=== PATIENT | male | born 1960 | race African-American/Black ===

== ENCOUNTER 2017-07-28 13:34 | Observation (INO) ==
[2017-07-28 14:52] LABS: Osmolality,Calculated 272.1 MOS/KG (273-304); Potassium 3.6 MMOL/L (3.5-5.1)
[2017-07-28] MEDS ORDERED: DEXTROSE 5% NACL 0.45% 1,000 ML IV SCH (16:00)
[2017-07-28] MEDS ORDERED: THIAMINE 200 MG/2 ML VIAL IM STA (16:08)
[2017-07-28] MEDS ORDERED: THIAMINE 200 MG/2 ML VIAL ONE (16:44)
[2017-07-28] MEDS ORDERED: ONDANSETRON 4 MG/2 ML VIAL IV PRN (17:42)
[2017-07-28] MEDS ORDERED: DEXTROSE 50% 25 GM/50 ML VIAL IV PRN (17:42)
[2017-07-28] MEDS ORDERED: DEXTROSE 10% 1,000 ML IV SCH (17:42)
[2017-07-28] MEDS ORDERED: GLUCAGON 1 MG VIAL IM PRN (17:42)
[2017-07-28] MEDS ORDERED: ACETAMINOPHEN 325 MG TABLET PO PRN (17:42)
[2017-07-28] MEDS ORDERED: ENOXAPARIN 30 MG/0.3 ML SYRINGE SUBCUT SCH (18:00)
[2017-07-28] MEDS: THIAMINE 100 MG TABLET PO SCH (18:13)
[2017-07-28] MEDS: [UNRECOGNIZED DRUG - REMARK] PO SCH ×2 (18:14→22:15)
[2017-07-28 18:22] LABS: Albumin 2.9 G/DL (3.4-5.0); Bilirubin,Direct 0.83 MG/DL (0.0-0.20); Bilirubin,Indirect 0.3 MG/DL (0.0-1.0); Bilirubin,Total 1.1 MG/DL (0.2-1.0); Total Protein 7.6 G/DL (6.4-8.3)
[2017-07-28 18:57] LABS: Basophils % 0.3 % (0.0-0.8); Eosinophils # 0.1 10*3/uL (0.0-0.87); Eosinophils % 1.4 % (0.00-10.9); Hematocrit 29.7 VOL% (42.0-52.0); Hemoglobin 10.6 GM/DL (14.0-18.0); Immature Granulocytes % 0.5 %; Immature Granulocytes Absolute 0.03 #; Lymphocytes # 0.6 10*3/uL (1.4-4.0); Lymphocytes % 8.6 % (21.2-54.2); Mean Corpuscular HGB Conc 35.7 GM/DL (32-36); Mean Corpuscular Hemoglobin 33 PG (27-34); Monocytes # 0.6 10*3/uL (0.11-0.8); Monocytes % 9.7 % (1.7-12.7); Neutrophils # 5.3 10*3/uL (1.4-7.4); Neutrophils % 79.5 % (38.7-73.9); Red Blood Count 3.23 MC/CUMM (3.8-5.5); Red Cell Distribution Width 15.7 % (9.3-17.3); White Blood Count 6.6 T/CUMM (4-12)
[2017-07-28 19:00] LABS: Platelet Count 96 T/CUMM (130-400)
[2017-07-28] MEDS: LABETALOL 100 MG TABLET PO SCH (21:18)
[2017-07-29 06:37] LABS: Basophils % 0.3 % (0.0-0.8); Eosinophils # 0.1 10*3/uL (0.0-0.87); Eosinophils % 1.8 % (0.00-10.9); Hematocrit 27.7 VOL% (42.0-52.0); Hemoglobin 9.9 GM/DL (14.0-18.0); Immature Granulocytes % 0.5 %; Immature Granulocytes Absolute 0.04 #; Lymphocytes # 0.7 10*3/uL (1.4-4.0); Lymphocytes % 8.7 % (21.2-54.2); Mean Corpuscular HGB Conc 35.7 GM/DL (32-36); Mean Corpuscular Hemoglobin 32 PG (27-34); Mean Corpuscular Volume 90.2 FL (87-102); Mean Platelet Volume 12.8 FL (9.6-12.0); Monocytes # 0.8 10*3/uL (0.11-0.8); Monocytes % 10.1 % (1.7-12.7); Neutrophils % 78.6 % (38.7-73.9); Platelet Count 100 T/CUMM (130-400); Red Blood Count 3.07 MC/CUMM (3.8-5.5); Red Cell Distribution Width 15.6 % (9.3-17.3); White Blood Count 7.6 T/CUMM (4-12)
[2017-07-29 07:00] LABS: Calcium 8.2 MG/DL (8.5-10.1); Osmolality,Calculated 272.5 MOS/KG (273-304); Potassium 4.4 MMOL/L (3.5-5.1)
[2017-07-29] MEDS ORDERED: PANTOPRAZOLE 40 MG TABLET PO SCH (09:00)
[2017-07-29] MEDS ORDERED: FOLIC ACID 1 MG TABLET PO SCH (09:00)
[2017-07-29] MEDS: LABETALOL 100 MG TABLET PO SCH (10:10)
[2017-07-29] MEDS: THIAMINE 100 MG TABLET PO SCH (10:11)
[2017-07-29] MEDS: [UNRECOGNIZED DRUG - REMARK] PO SCH ×2 (10:11→11:42)
[2017-07-29 17:03] VITALS: BP 164/87
== END 2017-07-29 16:50 | disposition home or self-care (01) ==
LOC: N.ED 13:34 → N.EDINP 13:34 → N.2E 17:40
PROVIDERS: ADMIT Internal Medicine; ATTEND Internal Medicine

== ENCOUNTER 2017-08-22 22:35 | Inpatient (IN) ==
[2017-08-22] MEDS ORDERED: methylPREDNISolone SOD SUC 125 MG/2 ML VIAL IV STA (23:10)
[2017-08-22] MEDS ORDERED: ALBUTEROL/IPRATROPIUM 3 ML NEB RESP TX STA (23:10)
[2017-08-22] MEDS ORDERED: FUROSEMIDE 100 MG/10 ML VIAL IV STA (23:10)
[2017-08-22] MEDS ORDERED: MORPHINE 2 MG/1 ML SYRINGE IV STA (23:10)
[2017-08-22] MEDS ORDERED: ONDANSETRON 4 MG/2 ML VIAL IV STA (23:10)
[2017-08-22 23:33] LABS: Basophils % 0.7 % (0.0-0.8); Eosinophils % 0.7 % (0.00-10.9); Hematocrit 26.1 VOL% (42.0-52.0); Hemoglobin 9.2 GM/DL (14.0-18.0); Immature Granulocytes % 0.2 %; Immature Granulocytes Absolute 0.01 #; Lymphocytes # 0.8 10*3/uL (1.4-4.0); Lymphocytes % 17.1 % (21.2-54.2); Mean Corpuscular HGB Conc 35.2 GM/DL (32-36); Mean Corpuscular Hemoglobin 32 PG (27-34); Mean Corpuscular Volume 90.3 FL (87-102); Monocytes # 0.6 10*3/uL (0.11-0.8); Neutrophils # 3.1 10*3/uL (1.4-7.4); Neutrophils % 67.3 % (38.7-73.9); Platelet Count 119 T/CUMM (130-400); Red Blood Count 2.89 MC/CUMM (3.8-5.5); Red Cell Distribution Width 15.3 % (9.3-17.3); White Blood Count 4.6 T/CUMM (4-12)
[2017-08-22 23:41] LABS: INR 1.1; PT Patient Result 11.1 SECS
[2017-08-22 23:57] LABS: Alanine Aminotransferase 19 U/L (16-61); Albumin 3.2 G/DL (3.4-5.0); Alkaline Phosphatase 403 U/L (45-117); Aspartate Amino Transferase 53 U/L (0-37); Blood Urea Nitrogen 13 MG/DL (7-18); Calcium 7.9 MG/DL (8.5-10.1); Glucose 91 MG/DL (74-106); Magnesium 2.2 MG/DL (1.8-2.4); Osmolality,Calculated 257.9 MOS/KG (273-304); Potassium 3.6 MMOL/L (3.5-5.1); Sodium 129 MMOL/L (136-145); Total Protein 8.1 G/DL (6.4-8.3); Troponin I Only < 0.015 NG/ML (0.00-0.045)
[2017-08-23] MEDS ORDERED: MORPHINE 2 MG/1 ML SYRINGE ONE (00:25)
[2017-08-23] MEDS ORDERED: FUROSEMIDE 100 MG/10 ML VIAL ONE (00:25)
[2017-08-23] MEDS ORDERED: methylPREDNISolone SOD SUC 125 MG/2 ML VIAL ONE (00:25)
[2017-08-23] MEDS ORDERED: ONDANSETRON 4 MG/2 ML VIAL ONE (00:25)
[2017-08-23] MEDS ORDERED: ONDANSETRON 4 MG/2 ML VIAL IV PRN (01:13)
[2017-08-23] MEDS ORDERED: GLUCAGON 1 MG VIAL IM PRN (01:20)
[2017-08-23] MEDS ORDERED: DEXTROSE 50% 25 GM/50 ML VIAL IV PRN (01:20)
[2017-08-23 05:31] LABS: Basophils % 0.4 % (0.0-0.8); Eosinophils % 0.2 % (0.00-10.9); Hematocrit 28.2 VOL% (42.0-52.0); Immature Granulocytes % 0.4 %; Immature Granulocytes Absolute 0.02 #; Lymphocytes # 0.4 10*3/uL (1.4-4.0); Lymphocytes % 7.6 % (21.2-54.2); Mean Corpuscular HGB Conc 35.5 GM/DL (32-36); Mean Corpuscular Hemoglobin 32 PG (27-34); Mean Corpuscular Volume 89.2 FL (87-102); Mean Platelet Volume 11.1 FL (9.6-12.0); Monocytes # 0.1 10*3/uL (0.11-0.8); Monocytes % 1.2 % (1.7-12.7); Neutrophils # 4.4 10*3/uL (1.4-7.4); Neutrophils % 90.2 % (38.7-73.9); Platelet Count 126 T/CUMM (130-400); Red Blood Count 3.16 MC/CUMM (3.8-5.5); Red Cell Distribution Width 15.2 % (9.3-17.3); White Blood Count 4.9 T/CUMM (4-12)
[2017-08-23 05:47] LABS: Calcium 8.1 MG/DL (8.5-10.1); Osmolality,Calculated 261.9 MOS/KG (273-304); Potassium 4.2 MMOL/L (3.5-5.1)
[2017-08-23 06:07] LABS: Giant Platelets Few; Hypochromasia 1+; Lymphocytes 6 % (20-55); Ovalocytes Slight; Platelet Estimate Normal; Segmented Neutrophils 94 % (50-85); Total Cells Counted 100
[2017-08-23] MEDS: ENOXAPARIN 30 MG/0.3 ML SYRINGE SUBCUT SCH (06:22)
[2017-08-23] MEDS: INSULIN REGULAR 100 UNIT/ML SUBCUT SCH ×4 (09:17→20:18)
[2017-08-23] MEDS: ACETAMINOPHEN 325 MG TABLET PO PRN ×2 (09:20→16:55)
[2017-08-23] MEDS ORDERED: LORazepam 1 MG TABLET PO PRN (12:41)
[2017-08-23] MEDS ORDERED: LORazepam 2 MG/1 ML VIAL IV PRN (12:41)
[2017-08-23] MEDS: LABETALOL 100 MG TABLET PO SCH ×2 (16:47→20:17)
[2017-08-23] MEDS: SEVELAMER CARBONATE 800 MG TABLET PO SCH (16:47)
[2017-08-23] MEDS: amLODIPine 10 MG TABLET PO SCH (16:48)
[2017-08-23] MEDS: THIAMINE 100 MG TABLET PO SCH (16:48)
[2017-08-23] MEDS: FOLIC ACID 1 MG TABLET PO SCH (16:48)
[2017-08-23] MEDS: MULTIVITAMIN (CENTRUM) TABLET PO SCH (16:48)
[2017-08-23] MEDS: CLINDAMYCIN INJ 600 MG in PREMIX 1 EACH IV SCH ×2 (16:48→23:43)
[2017-08-24] MEDS: CLINDAMYCIN INJ 600 MG in PREMIX 1 EACH IV SCH ×3 (06:14→23:42)
[2017-08-24] MEDS: ENOXAPARIN 30 MG/0.3 ML SYRINGE SUBCUT SCH (06:15)
[2017-08-24] MEDS ORDERED: SODIUM CHLORIDE 0.9% 250 ML IV SCH (07:30)
[2017-08-24] MEDS: INSULIN REGULAR 100 UNIT/ML SUBCUT SCH ×3 (11:30→20:44)
[2017-08-24] MEDS: MULTIVITAMIN (CENTRUM) TABLET PO SCH ×2 (11:31→16:54)
[2017-08-24] MEDS: THIAMINE 100 MG TABLET PO SCH ×2 (11:31→16:53)
[2017-08-24] MEDS: amLODIPine 10 MG TABLET PO SCH ×2 (11:31→16:53)
[2017-08-24] MEDS: SEVELAMER CARBONATE 800 MG TABLET PO SCH ×3 (11:31→16:53)
[2017-08-24] MEDS: FOLIC ACID 1 MG TABLET PO SCH ×2 (11:31→16:53)
[2017-08-24] MEDS: LABETALOL 100 MG TABLET PO SCH ×2 (11:31→20:44)
[2017-08-24 11:48] LABS: Hematocrit 26.2 VOL% (42.0-52.0); Immature Granulocytes % 1.1 %; Immature Granulocytes Absolute 0.06 #; Lymphocytes # 0.6 10*3/uL (1.4-4.0); Lymphocytes % 11.2 % (21.2-54.2); Mean Corpuscular HGB Conc 34.4 GM/DL (32-36); Mean Corpuscular Hemoglobin 32 PG (27-34); Mean Corpuscular Volume 91.9 FL (87-102); Mean Platelet Volume 11.4 FL (9.6-12.0); Monocytes # 0.7 10*3/uL (0.11-0.8); Monocytes % 12.9 % (1.7-12.7); Neutrophils # 3.9 10*3/uL (1.4-7.4); Neutrophils % 74.8 % (38.7-73.9); Platelet Count 128 T/CUMM (130-400); Red Blood Count 2.85 MC/CUMM (3.8-5.5); Red Cell Distribution Width 15.1 % (9.3-17.3); White Blood Count 5.3 T/CUMM (4-12)
[2017-08-24 12:24] LABS: Calcium 8.1 MG/DL (8.5-10.1); Magnesium 2.1 MG/DL (1.8-2.4); Osmolality,Calculated 269.4 MOS/KG (273-304); Potassium 3.8 MMOL/L (3.5-5.1)
[2017-08-24] MEDS ORDERED: fentaNYL 100 MCG/2 ML VIAL ONE (12:27)
[2017-08-24] MEDS ORDERED: MIDAZOLAM 2 MG/2 ML VIAL ONE (12:27)
[2017-08-24] MEDS: MORPHINE 2 MG/1 ML SYRINGE IV PRN (20:44)
[2017-08-25] MEDS: ACETAMINOPHEN 325 MG TABLET PO PRN (00:19)
[2017-08-25] MEDS: MORPHINE 2 MG/1 ML SYRINGE IV PRN ×2 (01:25→06:53)
[2017-08-25] MEDS: ENOXAPARIN 30 MG/0.3 ML SYRINGE SUBCUT SCH (05:40)
[2017-08-25 05:43] LABS: Basophils % 0.3 % (0.0-0.8); Eosinophils % 0.4 % (0.00-10.9); Hematocrit 26.3 VOL% (42.0-52.0); Hemoglobin 9.1 GM/DL (14.0-18.0); Immature Granulocytes % 0.9 %; Immature Granulocytes Absolute 0.06 #; Lymphocytes # 0.8 10*3/uL (1.4-4.0); Lymphocytes % 12.1 % (21.2-54.2); Mean Corpuscular HGB Conc 34.6 GM/DL (32-36); Mean Corpuscular Hemoglobin 32 PG (27-34); Mean Corpuscular Volume 91.6 FL (87-102); Mean Platelet Volume 11.4 FL (9.6-12.0); Monocytes # 0.8 10*3/uL (0.11-0.8); Monocytes % 11.3 % (1.7-12.7); NRBC # 0.02 10*3/uL; Platelet Count 120 T/CUMM (130-400); Red Blood Count 2.87 MC/CUMM (3.8-5.5); Red Cell Distribution Width 15.1 % (9.3-17.3); White Blood Count 6.7 T/CUMM (4-12)
[2017-08-25 06:20] LABS: Calcium 8.6 MG/DL (8.5-10.1); Osmolality,Calculated 275.2 MOS/KG (273-304); Potassium 3.9 MMOL/L (3.5-5.1)
[2017-08-25] MEDS: MULTIVITAMIN (CENTRUM) TABLET PO SCH (09:04)
[2017-08-25] MEDS: CLINDAMYCIN INJ 600 MG in PREMIX 1 EACH IV SCH ×2 (09:05→16:22)
[2017-08-25] MEDS: INSULIN REGULAR 100 UNIT/ML SUBCUT SCH ×4 (09:05→21:18)
[2017-08-25] MEDS: THIAMINE 100 MG TABLET PO SCH (09:05)
[2017-08-25] MEDS: amLODIPine 10 MG TABLET PO SCH (09:05)
[2017-08-25] MEDS: SEVELAMER CARBONATE 800 MG TABLET PO SCH ×3 (09:05→17:14)
[2017-08-25] MEDS: FOLIC ACID 1 MG TABLET PO SCH (09:05)
[2017-08-25] MEDS: LABETALOL 100 MG TABLET PO SCH ×2 (09:05→21:09)
[2017-08-25] MEDS: CLINDAMYCIN 300 MG CAPSULE PO SCH (17:14)
[2017-08-26] MEDS: CLINDAMYCIN 300 MG CAPSULE PO SCH ×5 (05:04→14:32)
[2017-08-26] MEDS: ENOXAPARIN 30 MG/0.3 ML SYRINGE SUBCUT SCH (05:18)
[2017-08-26] MEDS: SEVELAMER CARBONATE 800 MG TABLET PO SCH ×2 (09:36→11:29)
[2017-08-26] MEDS: THIAMINE 100 MG TABLET PO SCH (09:37)
[2017-08-26] MEDS: INSULIN REGULAR 100 UNIT/ML SUBCUT SCH ×2 (09:37→11:30)
[2017-08-26] MEDS: FOLIC ACID 1 MG TABLET PO SCH (09:37)
[2017-08-26] MEDS: LABETALOL 100 MG TABLET PO SCH (09:37)
[2017-08-26] MEDS: amLODIPine 10 MG TABLET PO SCH (09:37)
[2017-08-26] MEDS: MULTIVITAMIN (CENTRUM) TABLET PO SCH (09:37)
[2017-08-26 12:46] VITALS: BP 145/81
[2017-08-26 18:01] LABS: Hepatitis A Ab IgM Quant 0.17 Index; Hepatitis A Ab IgM Result Negative (Negative); Hepatitis B Core IgM Quant 0.09 Index; Hepatitis B Core IgM Result Negative (Negative); Hepatitis B Surface Ag Quant < 0.10 Index; Hepatitis B Surface Ag Result Negative (Negative); Hepatitis C Virus Ab Quant 0.17 Index; Hepatitis C Virus Ab Result Negative (Negative)
== END 2017-08-26 18:27 | disposition home health service (06) | DRG 617 ==
LOC: EDUNIT# → N.ED 22:35 → N.EDINP 22:35 → N.4E 08-23 01:36 → SUATTDRO 08-24 08:34
PROVIDERS: ADMIT Internal Medicine; ATTEND Hospitalist

== ENCOUNTER 2017-10-09 05:21 | Inpatient (IN) ==
[2017-10-09 06:35] LABS: Basophils # 0.1 10*3/uL (0.0-0.2); Basophils % 1.3 % (0.0-0.8); Eosinophils # 0.1 10*3/uL (0.0-0.87); Eosinophils % 1.7 % (0.00-10.9); Hematocrit 32.8 VOL% (42.0-52.0); Hemoglobin 11.3 GM/DL (14.0-18.0); Immature Granulocytes % 0.4 %; Immature Granulocytes Absolute 0.02 #; Lymphocytes # 1.1 10*3/uL (1.4-4.0); Lymphocytes % 23.9 % (21.2-54.2); Mean Corpuscular HGB Conc 34.5 GM/DL (32-36); Mean Corpuscular Hemoglobin 31 PG (27-34); Mean Corpuscular Volume 89.9 FL (87-102); Mean Platelet Volume 10.8 FL (9.6-12.0); Monocytes # 0.5 10*3/uL (0.11-0.8); Monocytes % 10.5 % (1.7-12.7); Neutrophils % 62.2 % (38.7-73.9); Platelet Count 138 T/CUMM (130-400); Red Blood Count 3.65 MC/CUMM (3.8-5.5); Red Cell Distribution Width 18.8 % (9.3-17.3); White Blood Count 4.8 T/CUMM (4-12)
[2017-10-09 06:53] LABS: Potassium 2.7 MMOL/L (3.5-5.1); Sodium 129 MMOL/L (136-145)
[2017-10-09 06:54] LABS: Calcium 8.9 MG/DL (8.5-10.1)
[2017-10-09 06:56] LABS: Albumin 3.1 G/DL (3.4-5.0); Blood Urea Nitrogen 35 MG/DL (7-18); Glucose 176 MG/DL (74-106); Osmolality,Calculated 269.9 MOS/KG (273-304)
[2017-10-09 06:59] LABS: Alanine Aminotransferase 21 U/L (16-61); Aspartate Amino Transferase 54 U/L (0-37)
[2017-10-09 07:00] LABS: Total Protein 8.6 G/DL (6.4-8.3)
[2017-10-09 07:01] LABS: Alkaline Phosphatase 428 U/L (45-117)
[2017-10-09 07:02] LABS: Lactic Acid 2.1 MMOL/L (0.4-2.0)
[2017-10-09] MEDS ORDERED: MAGNESIUM SULF RIDER 4 GM in PREMIX 1 EACH IV PRN (11:55)
[2017-10-09] MEDS ORDERED: DOCUSATE SODIUM 100 MG CAPSULE PO PRN (11:55)
[2017-10-09] MEDS ORDERED: GLUCAGON 1 MG VIAL IM PRN (11:55)
[2017-10-09] MEDS ORDERED: ONDANSETRON 4 MG/2 ML VIAL IV PRN (11:55)
[2017-10-09] MEDS ORDERED: LACTULOSE 20 GM/30 ML UDCUP PO PRN (11:55)
[2017-10-09] MEDS ORDERED: ACETAMINOPHEN 325 MG TABLET PO PRN (11:55)
[2017-10-09] MEDS ORDERED: DEXTROSE 50% 25 GM/50 ML VIAL IV PRN (11:55)
[2017-10-09] MEDS ORDERED: MAGNESIUM SULF RIDER 2 GM in PREMIX 1 EACH IV PRN (11:55)
[2017-10-09 12:29] LABS: Thyroid Stimulating Hormone 3.93 uIU/ml (0.358-3.74)
[2017-10-09] MEDS: amLODIPine 10 MG TABLET PO SCH (14:26)
[2017-10-09] MEDS: LABETALOL 100 MG TABLET PO SCH ×2 (14:27→21:37)
[2017-10-09] MEDS: INSULIN LISPRO 100 UNIT/ML SUBCUT SCH ×2 (17:04→21:35)
[2017-10-09] MEDS: SEVELAMER CARBONATE 800 MG TABLET PO SCH (17:04)
[2017-10-09] MEDS: POTASSIUM CHLORIDE 20 MEQ TABLET PO PRN (21:37)
[2017-10-10] MEDS: POTASSIUM CHLORIDE 20 MEQ TABLET PO PRN ×6 (00:40→17:42)
[2017-10-10 05:29] LABS: Basophils # 0.1 10*3/uL (0.0-0.2); Basophils % 1.2 % (0.0-0.8); Eosinophils # 0.1 10*3/uL (0.0-0.87); Eosinophils % 1.9 % (0.00-10.9); Hematocrit 31.1 VOL% (42.0-52.0); Hemoglobin 10.9 GM/DL (14.0-18.0); Immature Granulocytes % 0.5 %; Immature Granulocytes Absolute 0.02 #; Lymphocytes # 0.8 10*3/uL (1.4-4.0); Mean Corpuscular Hemoglobin 32 PG (27-34); Mean Corpuscular Volume 89.9 FL (87-102); Mean Platelet Volume 10.9 FL (9.6-12.0); Monocytes # 0.6 10*3/uL (0.11-0.8); Monocytes % 13.6 % (1.7-12.7); Neutrophils # 2.8 10*3/uL (1.4-7.4); Neutrophils % 64.8 % (38.7-73.9); Platelet Count 126 T/CUMM (130-400); Red Blood Count 3.46 MC/CUMM (3.8-5.5); Red Cell Distribution Width 18.6 % (9.3-17.3); White Blood Count 4.3 T/CUMM (4-12)
[2017-10-10 06:00] LABS: Albumin 2.9 G/DL (3.4-5.0); Bilirubin,Direct 0.76 MG/DL (0.0-0.20); Bilirubin,Indirect 0.4 MG/DL (0.0-1.0); Bilirubin,Total 1.2 MG/DL (0.2-1.0); Calcium 8.3 MG/DL (8.5-10.1); Osmolality,Calculated 279.4 MOS/KG (273-304); Potassium 3.3 MMOL/L (3.5-5.1); Total Protein 7.2 G/DL (6.4-8.3)
[2017-10-10] MEDS: INSULIN LISPRO 100 UNIT/ML SUBCUT SCH ×4 (07:49→21:48)
[2017-10-10] MEDS: THIAMINE 100 MG TABLET PO SCH (08:45)
[2017-10-10] MEDS: MULTIVITAMIN (CENTRUM) TABLET PO SCH (08:45)
[2017-10-10] MEDS: amLODIPine 10 MG TABLET PO SCH (08:45)
[2017-10-10] MEDS: INSULIN NPH/REGULAR 70/30 100 UNIT/ML SUBCUT SCH (08:45)
[2017-10-10] MEDS: LABETALOL 100 MG TABLET PO SCH ×2 (08:45→21:48)
[2017-10-10] MEDS: SEVELAMER CARBONATE 800 MG TABLET PO SCH ×3 (08:46→17:41)
[2017-10-10] MEDS: PANTOPRAZOLE 40 MG TABLET PO SCH (08:46)
[2017-10-10] MEDS ORDERED: PANTOPRAZOLE 40 MG TABLET PO SCH (09:00)
[2017-10-11 06:16] LABS: Basophils % 0.8 % (0.0-0.8); Eosinophils # 0.1 10*3/uL (0.0-0.87); Eosinophils % 2.3 % (0.00-10.9); Hematocrit 31.2 VOL% (42.0-52.0); Hemoglobin 10.8 GM/DL (14.0-18.0); Immature Granulocytes % 0.4 %; Immature Granulocytes Absolute 0.02 #; Lymphocytes # 0.9 10*3/uL (1.4-4.0); Lymphocytes % 17.9 % (21.2-54.2); Mean Corpuscular HGB Conc 34.6 GM/DL (32-36); Mean Corpuscular Hemoglobin 31 PG (27-34); Mean Corpuscular Volume 90.7 FL (87-102); Monocytes # 0.6 10*3/uL (0.11-0.8); Monocytes % 12.5 % (1.7-12.7); Neutrophils # 3.2 10*3/uL (1.4-7.4); Neutrophils % 66.1 % (38.7-73.9); Platelet Count 123 T/CUMM (130-400); Red Blood Count 3.44 MC/CUMM (3.8-5.5); Red Cell Distribution Width 18.7 % (9.3-17.3); White Blood Count 4.9 T/CUMM (4-12)
[2017-10-11 06:54] LABS: Calcium 8.4 MG/DL (8.5-10.1); Osmolality,Calculated 281.4 MOS/KG (273-304); Potassium 3.9 MMOL/L (3.5-5.1)
[2017-10-11 06:57] LABS: Albumin 3.1 G/DL (3.4-5.0); Bilirubin,Direct 0.69 MG/DL (0.0-0.20); Bilirubin,Indirect 0.6 MG/DL (0.0-1.0); Bilirubin,Total 1.3 MG/DL (0.2-1.0); Total Protein 7.5 G/DL (6.4-8.3)
[2017-10-11] MEDS: INSULIN LISPRO 100 UNIT/ML SUBCUT SCH ×4 (07:32→21:56)
[2017-10-11] MEDS: SEVELAMER CARBONATE 800 MG TABLET PO SCH ×3 (08:32→18:11)
[2017-10-11] MEDS: MULTIVITAMIN (CENTRUM) TABLET PO SCH (08:32)
[2017-10-11] MEDS: PANTOPRAZOLE 40 MG TABLET PO SCH (08:32)
[2017-10-11] MEDS: THIAMINE 100 MG TABLET PO SCH (08:32)
[2017-10-11] MEDS: amLODIPine 10 MG TABLET PO SCH (08:40)
[2017-10-11] MEDS: LABETALOL 100 MG TABLET PO SCH ×2 (08:40→21:55)
[2017-10-11] MEDS: INSULIN NPH/REGULAR 70/30 100 UNIT/ML SUBCUT SCH (08:40)
[2017-10-12] MEDS: LABETALOL 100 MG TABLET PO SCH (09:05)
[2017-10-12] MEDS: amLODIPine 10 MG TABLET PO SCH (09:05)
[2017-10-12] MEDS: SEVELAMER CARBONATE 800 MG TABLET PO SCH (09:06)
[2017-10-12] MEDS: THIAMINE 100 MG TABLET PO SCH (09:06)
[2017-10-12] MEDS: MULTIVITAMIN (CENTRUM) TABLET PO SCH (09:07)
[2017-10-12] MEDS: INSULIN NPH/REGULAR 70/30 100 UNIT/ML SUBCUT SCH (09:07)
[2017-10-12] MEDS: INSULIN LISPRO 100 UNIT/ML SUBCUT SCH (09:08)
[2017-10-12] MEDS: PANTOPRAZOLE 40 MG TABLET PO SCH (09:08)
[2017-10-12 11:30] VITALS: BP 157/90
== END 2017-10-12 12:30 | disposition home health service (06) | DRG 391 ==
LOC: N.ED 05:21 → SUATTDRO 11:07 → N.EDINP 12:16 → N.3E 13:43
PROVIDERS: ADMIT Hospitalist; ATTEND Internal Medicine

== ENCOUNTER 2017-11-19 12:25 | Inpatient (IN) ==
[2017-11-19 14:01] LABS: Basophils % 0.7 % (0.0-0.8); Eosinophils # 0.1 10*3/uL (0.0-0.87); Hematocrit 32.8 VOL% (42.0-52.0); Hemoglobin 11.4 GM/DL (14.0-18.0); Immature Granulocytes % 0.2 %; Immature Granulocytes Absolute 0.01 #; Mean Corpuscular HGB Conc 34.8 GM/DL (32-36); Mean Corpuscular Hemoglobin 32 PG (27-34); Mean Corpuscular Volume 92.7 FL (87-102); Mean Platelet Volume 10.9 FL (9.6-12.0); Monocytes % 20.8 % (1.7-12.7); Neutrophils # 2.5 10*3/uL (1.4-7.4); Neutrophils % 55.3 % (38.7-73.9); Platelet Count 107 T/CUMM (130-400); Red Blood Count 3.54 MC/CUMM (3.8-5.5); Red Cell Distribution Width 15.9 % (9.3-17.3); White Blood Count 4.6 T/CUMM (4-12)
[2017-11-19] MEDS ORDERED: CEFTAROLINE 600 MG in SODIUM CHLORIDE 0.9% 100 ML IV STA (14:38)
[2017-11-19 15:00] LABS: Albumin 3.2 G/DL (3.4-5.0); Bilirubin,Total 1.5 MG/DL (0.2-1.0); Calcium 8.7 MG/DL (8.5-10.1); Osmolality,Calculated 270.4 MOS/KG (273-304); Potassium 2.8 MMOL/L (3.5-5.1); Total Protein 8.9 G/DL (6.4-8.3)
[2017-11-19] MEDS ORDERED: CEFTAROLINE 600 MG VIAL IV ONE (15:11)
[2017-11-19 15:12] LABS: Sedimentation Rate-Westergren 76 MM/HR (0-20)
[2017-11-19 16:11] LABS: Band Neutrophils 5 % (0-10); Eosinophils 4 % (0-10); Lymphocytes 20 % (20-55); Myelocytes 3 %; Segmented Neutrophils 51 % (50-85); Total Cells Counted 100
[2017-11-19 16:12] LABS: Anisocytosis 1+; Hypochromasia 1+; Platelet Estimate Adequate; Target Cells 1+
[2017-11-19] MEDS ORDERED: GLUCAGON 1 MG VIAL IM PRN (16:21)
[2017-11-19] MEDS ORDERED: ONDANSETRON 4 MG/2 ML VIAL IV PRN (16:21)
[2017-11-19] MEDS ORDERED: DEXTROSE 50% 25 GM/50 ML VIAL IV PRN (16:21)
[2017-11-19] MEDS ORDERED: POTASSIUM CHLORIDE 20 MEQ TABLET PO STA (16:27)
[2017-11-19] MEDS: INSULIN LISPRO 100 UNIT/ML SUBCUT SCH ×2 (17:11→20:57)
[2017-11-19] MEDS: POTASSIUM CHLORIDE 20 MEQ TABLET PO PRN ×4 (17:11→20:53)
[2017-11-19] MEDS: ACETAMINOPHEN 325 MG TABLET PO PRN (20:52)
[2017-11-20 06:17] LABS: Basophils % 0.6 % (0.0-0.8); Eosinophils # 0.1 10*3/uL (0.0-0.87); Eosinophils % 2.2 % (0.00-10.9); Hematocrit 31.6 VOL% (42.0-52.0); Hemoglobin 11.1 GM/DL (14.0-18.0); Immature Granulocytes % 0.2 %; Immature Granulocytes Absolute 0.01 #; Lymphocytes # 0.8 10*3/uL (1.4-4.0); Lymphocytes % 17.1 % (21.2-54.2); Mean Corpuscular HGB Conc 35.1 GM/DL (32-36); Mean Corpuscular Hemoglobin 32 PG (27-34); Mean Corpuscular Volume 91.9 FL (87-102); Mean Platelet Volume 12.2 FL (9.6-12.0); Monocytes # 0.9 10*3/uL (0.11-0.8); Monocytes % 19.9 % (1.7-12.7); Neutrophils # 2.8 10*3/uL (1.4-7.4); Platelet Count 108 T/CUMM (130-400); Red Blood Count 3.44 MC/CUMM (3.8-5.5); White Blood Count 4.6 T/CUMM (4-12)
[2017-11-20 06:42] LABS: Band Neutrophils 2 % (0-10); Eosinophils 3 % (0-10); Lymphocytes 22 % (20-55); Segmented Neutrophils 61 % (50-85); Total Cells Counted 100
[2017-11-20 06:43] LABS: Macrocytosis 1+; Platelet Estimate Decreased
[2017-11-20 06:44] LABS: Calcium 8.6 MG/DL (8.5-10.1); Osmolality,Calculated 276.8 MOS/KG (273-304); Potassium 3.6 MMOL/L (3.5-5.1)
[2017-11-20] MEDS: PANTOPRAZOLE 40 MG TABLET PO SCH (08:12)
[2017-11-20] MEDS: INSULIN LISPRO 100 UNIT/ML SUBCUT SCH ×4 (08:39→21:16)
[2017-11-20] MEDS: CEFTAROLINE 300 MG in SODIUM CHLORIDE 0.9% 100 ML IV SCH ×2 (09:47→21:17)
[2017-11-20] MEDS ORDERED: INSULIN NPH/REGULAR 70/30 100 UNIT/ML SUBCUT SCH (10:30)
[2017-11-20] MEDS: SEVELAMER CARBONATE 800 MG TABLET PO SCH ×2 (11:21→16:51)
[2017-11-20] MEDS: THIAMINE 100 MG TABLET PO SCH (11:21)
[2017-11-20] MEDS: MULTIVITAMIN (CENTRUM) TABLET PO SCH (11:21)
[2017-11-20] MEDS: amLODIPine 10 MG TABLET PO SCH (11:21)
[2017-11-20] MEDS: MOMETASONE 50 MCG NASAL SPRAY 17 GM BOTTLE BOTH NARES SCH ×2 (14:10→21:18)
[2017-11-20 16:35] LABS: Apearance,Urine Slightly Hazy (Clear); Bacteria,Urine Occasional /HPF (Few); Bilirubin,Urine Negative (Negative); Blood, Urine Small mg/dL (Negative); Glucose,Urine (UA) >=500 mg/dL (Negative); Hyaline Casts,Urine 1 /LPF (0-3); Ketones,Urine Negative (Negative); Mucus,Urine Occasional /LPF (Occasional); Nitrite,Urine Negative (Negative); Protein,Urine >=500 MG/DL; RBC,Urine 6 /HPF (0-4); Urine Color Yellow (Yellow); Urine Specific Gravity 1.009 (1.001-1.035); Urine Urobilinogen < 2.0 EU/DL (0.2-1.0); WBC,Urine 13 /HPF (0-6)
[2017-11-20] MEDS: CARBAMIDE PEROXIDE 6.5% OTIC SOLN 15 ML BOTTLE BOTH EARS SCH ×2 (16:51→21:19)
[2017-11-20] MEDS: ACETAMINOPHEN 325 MG TABLET PO PRN (21:17)
[2017-11-20] MEDS: ZALEPLON 5 MG CAPSULE PO PRN (21:18)
[2017-11-21 05:55] LABS: Basophils % 0.6 % (0.0-0.8); Eosinophils # 0.1 10*3/uL (0.0-0.87); Eosinophils % 2.5 % (0.00-10.9); Hematocrit 32.9 VOL% (42.0-52.0); Hemoglobin 11.7 GM/DL (14.0-18.0); Immature Granulocytes % 0.6 %; Immature Granulocytes Absolute 0.03 #; Lymphocytes # 1.1 10*3/uL (1.4-4.0); Lymphocytes % 21.7 % (21.2-54.2); Mean Corpuscular HGB Conc 35.6 GM/DL (32-36); Mean Corpuscular Hemoglobin 32 PG (27-34); Mean Corpuscular Volume 90.9 FL (87-102); Mean Platelet Volume 11.7 FL (9.6-12.0); Monocytes # 0.7 10*3/uL (0.11-0.8); Monocytes % 13.5 % (1.7-12.7); Neutrophils % 61.1 % (38.7-73.9); Platelet Count 111 T/CUMM (130-400); Red Blood Count 3.62 MC/CUMM (3.8-5.5); Red Cell Distribution Width 15.6 % (9.3-17.3); White Blood Count 4.9 T/CUMM (4-12)
[2017-11-21 06:18] LABS: Calcium 8.6 MG/DL (8.5-10.1); Osmolality,Calculated 273.5 MOS/KG (273-304); Potassium 3.5 MMOL/L (3.5-5.1)
[2017-11-21] MEDS: INSULIN LISPRO 100 UNIT/ML SUBCUT SCH ×4 (07:44→21:20)
[2017-11-21] MEDS: SEVELAMER CARBONATE 800 MG TABLET PO SCH ×4 (08:09→16:33)
[2017-11-21] MEDS: amLODIPine 10 MG TABLET PO SCH (08:09)
[2017-11-21] MEDS: INSULIN NPH/REGULAR 70/30 100 UNIT/ML SUBCUT SCH (08:09)
[2017-11-21] MEDS: MULTIVITAMIN (CENTRUM) TABLET PO SCH (08:09)
[2017-11-21] MEDS: PANTOPRAZOLE 40 MG TABLET PO SCH (08:10)
[2017-11-21] MEDS: CEFTAROLINE 300 MG in SODIUM CHLORIDE 0.9% 100 ML IV SCH (08:10)
[2017-11-21] MEDS: THIAMINE 100 MG TABLET PO SCH (08:10)
[2017-11-21] MEDS: MOMETASONE 50 MCG NASAL SPRAY 17 GM BOTTLE BOTH NARES SCH ×2 (08:11→21:20)
[2017-11-21] MEDS: CARBAMIDE PEROXIDE 6.5% OTIC SOLN 15 ML BOTTLE BOTH EARS SCH ×2 (08:11→21:20)
[2017-11-21] MEDS ORDERED: SODIUM CHLORIDE 0.65% NASAL SPRAY 45 ML BOTTLE BOTH NARES PRN (09:53)
[2017-11-21] MEDS ORDERED: CETIRIZINE 10 MG TABLET PO PRN (09:53)
[2017-11-21] MEDS ORDERED: predniSONE 20 MG TABLET PO SCH (10:00)
[2017-11-21] MEDS: ACETAMINOPHEN 325 MG TABLET PO PRN (21:19)
[2017-11-21] MEDS: CEFTAROLINE 200 MG in SODIUM CHLORIDE 0.9% 100 ML IV SCH (21:20)
[2017-11-22] MEDS: ZALEPLON 5 MG CAPSULE PO PRN ×2 (00:01→21:43)
[2017-11-22 06:32] LABS: Basophils % 0.2 % (0.0-0.8); Hematocrit 32.9 VOL% (42.0-52.0); Hemoglobin 11.5 GM/DL (14.0-18.0); Immature Granulocytes % 0.3 %; Immature Granulocytes Absolute 0.02 #; Lymphocytes # 0.8 10*3/uL (1.4-4.0); Lymphocytes % 12.9 % (21.2-54.2); Mean Corpuscular Hemoglobin 32 PG (27-34); Mean Corpuscular Volume 91.6 FL (87-102); Mean Platelet Volume 12.4 FL (9.6-12.0); Monocytes # 0.7 10*3/uL (0.11-0.8); Monocytes % 11.9 % (1.7-12.7); Neutrophils # 4.4 10*3/uL (1.4-7.4); Neutrophils % 74.7 % (38.7-73.9); Platelet Count 127 T/CUMM (130-400); Red Blood Count 3.59 MC/CUMM (3.8-5.5); Red Cell Distribution Width 15.2 % (9.3-17.3)
[2017-11-22 07:04] LABS: Calcium 8.6 MG/DL (8.5-10.1); Osmolality,Calculated 286.1 MOS/KG (273-304); Potassium 4.3 MMOL/L (3.5-5.1)
[2017-11-22] MEDS: predniSONE 20 MG TABLET PO SCH (08:06)
[2017-11-22] MEDS: SEVELAMER CARBONATE 800 MG TABLET PO SCH ×4 (08:06→21:55)
[2017-11-22] MEDS: PANTOPRAZOLE 40 MG TABLET PO SCH (08:06)
[2017-11-22] MEDS: MULTIVITAMIN (CENTRUM) TABLET PO SCH (08:07)
[2017-11-22] MEDS: INSULIN LISPRO 100 UNIT/ML SUBCUT SCH ×4 (08:07→21:42)
[2017-11-22] MEDS: INSULIN NPH/REGULAR 70/30 100 UNIT/ML SUBCUT SCH (08:07)
[2017-11-22] MEDS: THIAMINE 100 MG TABLET PO SCH (08:07)
[2017-11-22] MEDS: amLODIPine 10 MG TABLET PO SCH (08:07)
[2017-11-22] MEDS: MOMETASONE 50 MCG NASAL SPRAY 17 GM BOTTLE BOTH NARES SCH ×2 (08:07→21:43)
[2017-11-22] MEDS: CARBAMIDE PEROXIDE 6.5% OTIC SOLN 15 ML BOTTLE BOTH EARS SCH ×2 (08:09→21:43)
[2017-11-22] MEDS: CEFTAROLINE 200 MG in SODIUM CHLORIDE 0.9% 100 ML IV SCH ×2 (08:10→21:42)
[2017-11-22] MEDS: ACETAMINOPHEN 325 MG TABLET PO PRN (21:48)
[2017-11-23 06:53] LABS: Calcium 8.4 MG/DL (8.5-10.1); Osmolality,Calculated 285.4 MOS/KG (273-304); Potassium 4.2 MMOL/L (3.5-5.1)
[2017-11-23 07:02] VITALS: BP 151/94
[2017-11-23] MEDS: THIAMINE 100 MG TABLET PO SCH (08:28)
[2017-11-23] MEDS: INSULIN NPH/REGULAR 70/30 100 UNIT/ML SUBCUT SCH (08:28)
[2017-11-23] MEDS: MULTIVITAMIN (CENTRUM) TABLET PO SCH (08:28)
[2017-11-23] MEDS: predniSONE 20 MG TABLET PO SCH (08:28)
[2017-11-23] MEDS: SEVELAMER CARBONATE 800 MG TABLET PO SCH ×2 (08:28→12:28)
[2017-11-23] MEDS: PANTOPRAZOLE 40 MG TABLET PO SCH (08:28)
[2017-11-23] MEDS: INSULIN LISPRO 100 UNIT/ML SUBCUT SCH ×2 (08:28→12:27)
[2017-11-23] MEDS: amLODIPine 10 MG TABLET PO SCH (08:28)
[2017-11-23] MEDS: CARBAMIDE PEROXIDE 6.5% OTIC SOLN 15 ML BOTTLE BOTH EARS SCH (08:29)
[2017-11-23] MEDS: MOMETASONE 50 MCG NASAL SPRAY 17 GM BOTTLE BOTH NARES SCH (08:29)
[2017-11-23] MEDS: CEFTAROLINE 200 MG in SODIUM CHLORIDE 0.9% 100 ML IV SCH (08:31)
[2017-11-25] MEDS ORDERED: predniSONE 10 MG TABLET PO SCH (09:00)
== END 2017-11-23 12:35 | disposition home or self-care (01) | DRG 638 ==
LOC: N.ED 12:25 → SUATTDRO 15:48 → N.EDINP 15:48 → N.5E 17:03
PROVIDERS: ADMIT Internal Medicine; ATTEND Internal Medicine

== ENCOUNTER 2017-12-24 19:34 | Inpatient (IN) ==
[2017-12-24] MEDS ORDERED: PANTOPRAZOLE 40 MG VIAL IV STA (20:21)
[2017-12-24 21:04] LABS: Basophils % 0.5 % (0.0-0.8); Eosinophils # 0.2 10*3/uL (0.0-0.87); Eosinophils % 3.1 % (0.00-10.9); Hemoglobin 10.3 GM/DL (14.0-18.0); Immature Granulocytes % 0.5 %; Immature Granulocytes Absolute 0.03 #; Lymphocytes % 15.3 % (21.2-54.2); Mean Corpuscular HGB Conc 35.5 GM/DL (32-36); Mean Corpuscular Hemoglobin 33 PG (27-34); Mean Corpuscular Volume 91.5 FL (87-102); Mean Platelet Volume 12.8 FL (9.6-12.0); Monocytes # 1.3 10*3/uL (0.11-0.8); Monocytes % 19.5 % (1.7-12.7); Neutrophils % 61.1 % (38.7-73.9); Platelet Count 138 T/CUMM (130-400); Red Blood Count 3.17 MC/CUMM (3.8-5.5); Red Cell Distribution Width 14.5 % (9.3-17.3); White Blood Count 6.6 T/CUMM (4-12)
[2017-12-24 21:23] LABS: Albumin 2.8 G/DL (3.4-5.0); Bilirubin,Total 0.9 MG/DL (0.2-1.0); Calcium 7.9 MG/DL (8.5-10.1); Osmolality,Calculated 269.7 MOS/KG (273-304); Potassium 3.6 MMOL/L (3.5-5.1); Total Protein 7.4 G/DL (6.4-8.3)
[2017-12-24 22:42] LABS: Band Neutrophils 4 % (0-10); Eosinophils 4 % (0-10); Lymphocytes 18 % (20-55); Segmented Neutrophils 63 % (50-85); Total Cells Counted 100
[2017-12-25] MEDS ORDERED: GLUCAGON 1 MG VIAL IM PRN (04:27)
[2017-12-25] MEDS ORDERED: MORPHINE 4 MG/1 ML VIAL IV PRN (04:27)
[2017-12-25] MEDS ORDERED: DEXTROSE 50% 25 GM/50 ML VIAL IV PRN (04:27)
[2017-12-25] MEDS: metroNIDAZOLE INJ 500 MG in PREMIX 1 EACH IV SCH ×2 (05:41→16:18)
[2017-12-25] MEDS: cefTRIAXone 1,000 MG in SYRINGE 1 EACH IV SCH ×2 (05:41→16:18)
[2017-12-25 07:33] LABS: Hematocrit 29.5 VOL% (42.0-52.0); Hemoglobin 10.2 GM/DL (14.0-18.0)
[2017-12-25] MEDS: INSULIN REGULAR 100 UNIT/ML SUBCUT SCH ×4 (07:55→21:00)
[2017-12-25 08:37] LABS: INR 1.1; PT Patient Result 11.3 SECS
[2017-12-25] MEDS ORDERED: INSULIN NPH/REGULAR 70/30 100 UNIT/ML SUBCUT SCH ×3 (09:00→19:00)
[2017-12-25] MEDS: THIAMINE 100 MG TABLET PO SCH (09:12)
[2017-12-25] MEDS: PANTOPRAZOLE 40 MG VIAL IV SCH ×2 (09:12→20:48)
[2017-12-25] MEDS: BISACODYL 5 MG TABLET PO SCH ×3 (09:12→23:45)
[2017-12-25] MEDS: SEVELAMER CARBONATE 800 MG TABLET PO SCH ×3 (09:13→16:17)
[2017-12-25] MEDS: amLODIPine 10 MG TABLET PO SCH (09:13)
[2017-12-25] MEDS: LABETALOL 100 MG TABLET PO SCH ×2 (09:13→20:48)
[2017-12-25] MEDS: MULTIVITAMIN (CENTRUM) TABLET PO SCH (09:13)
[2017-12-25] MEDS: INSULIN NPH/REGULAR 70/30 100 UNIT/ML SUBCUT SCH (12:59)
[2017-12-25 14:16] LABS: Hematocrit 29.1 VOL% (42.0-52.0); Hemoglobin 10.1 GM/DL (14.0-18.0)
[2017-12-25 17:18] LABS: Hematocrit 28.8 VOL% (42.0-52.0); Hemoglobin 10.1 GM/DL (14.0-18.0)
[2017-12-25] MEDS ORDERED: POLYETHYLENE GLYCOL 3350/ELECTROLYTES 4,000 ML BOTTLE PO ONE (18:00)
[2017-12-25] MEDS ORDERED: MAGNESIUM CITRATE 300 ML BOTTLE PO ONE (21:00)
[2017-12-25 22:52] LABS: Hematocrit 32.1 VOL% (42.0-52.0); Hemoglobin 11.1 GM/DL (14.0-18.0)
[2017-12-26 05:09] LABS: Basophils % 0.6 % (0.0-0.8); Eosinophils # 0.2 10*3/uL (0.0-0.87); Eosinophils % 3.1 % (0.00-10.9); Hematocrit 28.9 VOL% (42.0-52.0); Hemoglobin 10.3 GM/DL (14.0-18.0); Immature Granulocytes % 0.4 %; Immature Granulocytes Absolute 0.02 #; Lymphocytes # 1.1 10*3/uL (1.4-4.0); Lymphocytes % 19.8 % (21.2-54.2); Mean Corpuscular HGB Conc 35.6 GM/DL (32-36); Mean Corpuscular Hemoglobin 32 PG (27-34); Mean Corpuscular Volume 89.2 FL (87-102); Mean Platelet Volume 13.1 FL (9.6-12.0); Monocytes # 0.8 10*3/uL (0.11-0.8); Monocytes % 14.5 % (1.7-12.7); Neutrophils # 3.4 10*3/uL (1.4-7.4); Neutrophils % 61.6 % (38.7-73.9); Platelet Count 153 T/CUMM (130-400); Red Blood Count 3.24 MC/CUMM (3.8-5.5); Red Cell Distribution Width 14.3 % (9.3-17.3); White Blood Count 5.5 T/CUMM (4-12)
[2017-12-26 05:36] LABS: Calcium 8.8 MG/DL (8.5-10.1); Osmolality,Calculated 273.2 MOS/KG (273-304); Potassium 3.6 MMOL/L (3.5-5.1)
[2017-12-26] MEDS: metroNIDAZOLE INJ 500 MG in PREMIX 1 EACH IV SCH ×2 (05:46→16:34)
[2017-12-26] MEDS: cefTRIAXone 1,000 MG in SYRINGE 1 EACH IV SCH ×2 (05:48→16:34)
[2017-12-26] MEDS: INSULIN REGULAR 100 UNIT/ML SUBCUT SCH ×3 (07:24→16:22)
[2017-12-26] MEDS: INSULIN NPH/REGULAR 70/30 100 UNIT/ML SUBCUT SCH (07:25)
[2017-12-26] MEDS: SEVELAMER CARBONATE 800 MG TABLET PO SCH ×2 (07:26→12:01)
[2017-12-26] MEDS ORDERED: PROPOFOL 200 MG/20 ML VIAL IV ONE (08:07)
[2017-12-26] MEDS ORDERED: LIDOCAINE 1% 5 ML VIAL ONE (08:07)
[2017-12-26] MEDS: MULTIVITAMIN (CENTRUM) TABLET PO SCH (10:32)
[2017-12-26] MEDS: amLODIPine 10 MG TABLET PO SCH (10:32)
[2017-12-26] MEDS: PANTOPRAZOLE 40 MG VIAL IV SCH (10:33)
[2017-12-26] MEDS: THIAMINE 100 MG TABLET PO SCH (10:33)
[2017-12-26] MEDS: LABETALOL 100 MG TABLET PO SCH (10:33)
[2017-12-26 16:31] VITALS: BP 130/83
== END 2017-12-26 17:35 | disposition home or self-care (01) | DRG 393 ==
LOC: EDUNIT# → N.ED 19:34 → N.EDINP 12-25 03:00 → N.ICU 12-25 04:16
PROVIDERS: ADMIT Hospitalist; ATTEND Hospitalist

== ENCOUNTER 2018-02-02 10:46 | Inpatient (IN) ==
[2018-02-02 11:09] LABS: Basophils % 0.4 % (0.0-0.8); Eosinophils # 0.1 10*3/uL (0.0-0.87); Eosinophils % 1.1 % (0.00-10.9); Hematocrit 27.4 VOL% (42.0-52.0); Hemoglobin 9.7 GM/DL (14.0-18.0); Immature Granulocytes % 0.4 %; Immature Granulocytes Absolute 0.02 #; Lymphocytes # 0.8 10*3/uL (1.4-4.0); Lymphocytes % 15.4 % (21.2-54.2); Mean Corpuscular HGB Conc 35.4 GM/DL (32-36); Mean Corpuscular Hemoglobin 31 PG (27-34); Mean Corpuscular Volume 88.7 FL (87-102); Mean Platelet Volume 12.3 FL (9.6-12.0); Monocytes # 0.5 10*3/uL (0.11-0.8); Monocytes % 10.3 % (1.7-12.7); Neutrophils # 3.8 10*3/uL (1.4-7.4); Neutrophils % 72.4 % (38.7-73.9); Platelet Count 136 T/CUMM (130-400); Red Blood Count 3.09 MC/CUMM (3.8-5.5); Red Cell Distribution Width 14.4 % (9.3-17.3); White Blood Count 5.3 T/CUMM (4-12)
[2018-02-02 11:28] LABS: Albumin 2.7 G/DL (3.4-5.0); Bilirubin,Total 1.2 MG/DL (0.2-1.0); Calcium 8.4 MG/DL (8.5-10.1); Osmolality,Calculated 273.2 MOS/KG (273-304); Potassium 3.6 MMOL/L (3.5-5.1); Total Protein 7.8 G/DL (6.4-8.3)
[2018-02-02] MEDS ORDERED: ONDANSETRON 4 MG/2 ML VIAL IV STA (11:29)
[2018-02-02] MEDS ORDERED: PANTOPRAZOLE 40 MG VIAL IV STA (11:29)
[2018-02-02 11:51] LABS: Partial Thromboplastin Time 30.4 SECS (0-40)
[2018-02-02] MEDS: OCTREOTIDE 500 MCG in SODIUM CHLORIDE 0.9% 100 ML IV SCH (14:55)
[2018-02-02] MEDS: LACTULOSE 20 GM/30 ML UDCUP PO SCH ×2 (17:34→23:19)
[2018-02-03] MEDS: OCTREOTIDE 500 MCG in SODIUM CHLORIDE 0.9% 100 ML IV SCH ×3 (00:08→20:54)
[2018-02-03] MEDS: hydrALAZINE 20 MG/1 ML VIAL IV PRN ×2 (04:18→12:59)
[2018-02-03] MEDS: LACTULOSE 20 GM/30 ML UDCUP PO SCH ×4 (05:18→17:13)
[2018-02-03 06:48] LABS: Basophils % 0.8 % (0.0-0.8); Eosinophils # 0.1 10*3/uL (0.0-0.87); Eosinophils % 2.5 % (0.00-10.9); Hematocrit 27.1 VOL% (42.0-52.0); Hemoglobin 9.5 GM/DL (14.0-18.0); Immature Granulocytes % 0.4 %; Immature Granulocytes Absolute 0.02 #; Lymphocytes # 0.9 10*3/uL (1.4-4.0); Lymphocytes % 17.9 % (21.2-54.2); Mean Corpuscular HGB Conc 35.1 GM/DL (32-36); Mean Corpuscular Hemoglobin 31 PG (27-34); Mean Corpuscular Volume 89.4 FL (87-102); Mean Platelet Volume 12.3 FL (9.6-12.0); Monocytes # 0.9 10*3/uL (0.11-0.8); Monocytes % 17.1 % (1.7-12.7); NRBC # 0.02 10*3/uL; Neutrophils # 3.2 10*3/uL (1.4-7.4); Neutrophils % 61.3 % (38.7-73.9); Platelet Count 122 T/CUMM (130-400); Red Blood Count 3.03 MC/CUMM (3.8-5.5); Red Cell Distribution Width 14.3 % (9.3-17.3); White Blood Count 5.3 T/CUMM (4-12)
[2018-02-03 06:49] LABS: Hematocrit 26.8 VOL% (42.0-52.0); Hemoglobin 9.5 GM/DL (14.0-18.0)
[2018-02-03 06:58] LABS: Calcium 8.9 MG/DL (8.5-10.1); Osmolality,Calculated 286.2 MOS/KG (273-304); Potassium 3.5 MMOL/L (3.5-5.1)
[2018-02-03 07:13] LABS: Eosinophils 5 % (0-10); Lymphocytes 18 % (20-55); Segmented Neutrophils 61 % (50-85); Total Cells Counted 100
[2018-02-03 07:14] LABS: Hypochromasia 1+; Platelet Estimate Decreased
[2018-02-03] MEDS ORDERED: PANTOPRAZOLE 40 MG TABLET PO SCH (09:00)
[2018-02-03] MEDS ORDERED: PRORENAL PO SCH (09:00)
[2018-02-03] MEDS ORDERED: ceFAZolin 1,000 MG in SYRINGE 1 EACH IV ONE (09:00)
[2018-02-03] MEDS ORDERED: [UNRECOGNIZED DRUG - OTHER] PO SCH (09:00)
[2018-02-03 10:03] LABS: Hematocrit 26.9 VOL% (42.0-52.0); Hemoglobin 9.7 GM/DL (14.0-18.0)
[2018-02-03] MEDS: SEVELAMER CARBONATE 800 MG TABLET PO SCH ×3 (10:21→17:12)
[2018-02-03] MEDS: amLODIPine 10 MG TABLET PO SCH (10:28)
[2018-02-03] MEDS: LABETALOL 100 MG TABLET PO SCH ×2 (10:28→20:55)
[2018-02-03] MEDS: PANTOPRAZOLE 40 MG TABLET PO SCH ×2 (10:28→20:55)
[2018-02-03] MEDS: INSULIN NPH/REGULAR 70/30 100 UNIT/ML SUBCUT SCH (12:58)
[2018-02-03] MEDS ORDERED: LIDOCAINE 1% 5 ML VIAL ONE (15:01)
[2018-02-03] MEDS ORDERED: PROPOFOL 200 MG/20 ML VIAL IV ONE (15:01)
[2018-02-03] MEDS ORDERED: GLYCOPYRROLATE 0.4 MG/2 ML VIAL ONE (15:01)
[2018-02-03] MEDS ORDERED: SODIUM CHLORIDE 0.65% NASAL SPRAY 45 ML BOTTLE BOTH NARES PRN (16:29)
[2018-02-03] MEDS ORDERED: INSULIN NPH/REGULAR 70/30 100 UNIT/ML SUBCUT SCH (17:00)
[2018-02-03 20:56] LABS: Hematocrit 26.5 VOL% (42.0-52.0); Hemoglobin 9.3 GM/DL (14.0-18.0)
[2018-02-04] MEDS: LACTULOSE 20 GM/30 ML UDCUP PO SCH ×3 (00:11→12:05)
[2018-02-04 04:47] LABS: Hematocrit 25.1 VOL% (42.0-52.0); Hemoglobin 9.2 GM/DL (14.0-18.0)
[2018-02-04 05:24] LABS: Albumin 3.1 G/DL (3.4-5.0); Bilirubin,Direct 0.84 MG/DL (0.0-0.20); Bilirubin,Indirect 1.1 MG/DL (0.0-1.0); Bilirubin,Total 1.9 MG/DL (0.2-1.0); Total Protein 7.9 G/DL (6.4-8.3)
[2018-02-04 10:03] LABS: Hematocrit 25.3 VOL% (42.0-52.0); Hemoglobin 8.8 GM/DL (14.0-18.0)
[2018-02-04] MEDS: OCTREOTIDE 500 MCG in SODIUM CHLORIDE 0.9% 100 ML IV SCH (12:00)
[2018-02-04] MEDS: SEVELAMER CARBONATE 800 MG TABLET PO SCH ×2 (12:01→12:04)
[2018-02-04] MEDS: INSULIN NPH/REGULAR 70/30 100 UNIT/ML SUBCUT SCH (12:02)
[2018-02-04] MEDS: amLODIPine 10 MG TABLET PO SCH (12:04)
[2018-02-04] MEDS: LABETALOL 100 MG TABLET PO SCH (12:04)
[2018-02-04] MEDS: PANTOPRAZOLE 40 MG TABLET PO SCH (12:04)
[2018-02-04 12:26] VITALS: BP 151/89
== END 2018-02-04 13:10 | disposition home or self-care (01) | DRG 432 ==
LOC: EDUNIT# → EDBD → N.ED 10:46 → N.EDINP 11:40 → SUATTDRO 11:40 → N.EDINP 13:05 → N.3E 14:18
PROVIDERS: ADMIT Hospitalist; ATTEND Internal Medicine
PROC: EGDWEBL (ICD-10-PCS; 2018-02-03 07:05)

== ENCOUNTER 2018-03-30 19:04 | Inpatient (IN) ==
[2018-03-30 19:24] LABS: Basophils # 0.1 10*3/uL (0.0-0.2); Eosinophils # 0.1 10*3/uL (0.0-0.87); Eosinophils % 1.6 % (0.00-10.9); Hematocrit 28.6 VOL% (42.0-52.0); Hemoglobin 9.8 GM/DL (14.0-18.0); Immature Granulocytes % 0.6 %; Immature Granulocytes Absolute 0.03 #; Lymphocytes # 1.2 10*3/uL (1.4-4.0); Lymphocytes % 23.6 % (21.2-54.2); Mean Corpuscular HGB Conc 34.3 GM/DL (32-36); Mean Corpuscular Hemoglobin 33 PG (27-34); Mean Corpuscular Volume 96.6 FL (87-102); Mean Platelet Volume 10.4 FL (9.6-12.0); Monocytes # 0.7 10*3/uL (0.11-0.8); Monocytes % 14.2 % (1.7-12.7); Platelet Count 150 T/CUMM (130-400); Red Blood Count 2.96 MC/CUMM (3.8-5.5); Red Cell Distribution Width 15.8 % (9.3-17.3)
[2018-03-30] MEDS ORDERED: THIAMINE INJ 100 MG, FOLIC ACID INJ 1 MG, MULTIVITAMIN INJ 10 ML in SODIUM CHLORIDE 0.9... IV SCH (19:30)
[2018-03-30 19:39] LABS: INR 1.1; PT Patient Result 11.4 SECS; Partial Thromboplastin Time 31.3 SECS (0-40)
[2018-03-30 19:43] LABS: Albumin 2.7 G/DL (3.4-5.0); Osmolality,Calculated 260.7 MOS/KG (273-304); Potassium 2.8 MMOL/L (3.5-5.1); Total Protein 8.1 G/DL (6.4-8.3)
[2018-03-31] MEDS ORDERED: ONDANSETRON 4 MG/2 ML VIAL IV PRN (00:12)
[2018-03-31] MEDS ORDERED: DEXTROSE 50% 25 GM/50 ML VIAL IV PRN (00:12)
[2018-03-31] MEDS ORDERED: GLUCAGON 1 MG VIAL IM PRN (00:12)
[2018-03-31] MEDS ORDERED: SODIUM CHLORIDE 0.9% 500 ML IV ONE (00:12)
[2018-03-31] MEDS ORDERED: POTASSIUM CHLORIDE 20 MEQ TABLET PO ONE (00:12)
[2018-03-31 06:15] LABS: Calcium 7.4 MG/DL (8.5-10.1); Osmolality,Calculated 263.5 MOS/KG (273-304)
[2018-03-31] MEDS: INSULIN REGULAR 100 UNIT/ML SUBCUT SCH ×4 (08:13→21:19)
[2018-03-31] MEDS: INSULIN NPH/REGULAR 70/30 100 UNIT/ML SUBCUT SCH ×2 (08:13→16:43)
[2018-03-31] MEDS: FOLIC ACID 1 MG TABLET PO SCH (09:14)
[2018-03-31] MEDS: ENOXAPARIN 30 MG/0.3 ML SYRINGE SUBCUT SCH (09:14)
[2018-03-31] MEDS: THIAMINE 100 MG TABLET PO SCH (09:14)
[2018-03-31] MEDS: MULTIVITAMIN (BEROCCA) TABLET PO SCH (09:14)
[2018-03-31] MEDS: PROPRANOLOL 10 MG TABLET PO SCH ×3 (09:14→20:54)
[2018-03-31] MEDS: SEVELAMER CARBONATE 800 MG TABLET PO SCH ×3 (09:14→17:05)
[2018-03-31] MEDS: PANTOPRAZOLE 40 MG TABLET PO SCH (09:14)
[2018-03-31] MEDS: DOCUSATE SODIUM 100 MG CAPSULE PO SCH ×2 (09:14→20:54)
[2018-03-31] MEDS: amLODIPine 10 MG TABLET PO SCH (09:14)
[2018-04-01 05:16] LABS: Basophils # 0.1 10*3/uL (0.0-0.2); Eosinophils # 0.1 10*3/uL (0.0-0.87); Eosinophils % 2.1 % (0.00-10.9); Hematocrit 33.6 VOL% (42.0-52.0); Hemoglobin 11.5 GM/DL (14.0-18.0); Immature Granulocytes % 0.5 %; Immature Granulocytes Absolute 0.03 #; Lymphocytes # 0.6 10*3/uL (1.4-4.0); Lymphocytes % 10.2 % (21.2-54.2); Mean Corpuscular HGB Conc 34.2 GM/DL (32-36); Mean Corpuscular Hemoglobin 33 PG (27-34); Mean Corpuscular Volume 97.1 FL (87-102); Mean Platelet Volume 10.9 FL (9.6-12.0); Monocytes # 0.7 10*3/uL (0.11-0.8); Monocytes % 11.4 % (1.7-12.7); Neutrophils # 4.4 10*3/uL (1.4-7.4); Neutrophils % 74.8 % (38.7-73.9); Platelet Count 163 T/CUMM (130-400); Red Blood Count 3.46 MC/CUMM (3.8-5.5); Red Cell Distribution Width 15.8 % (9.3-17.3); White Blood Count 5.8 T/CUMM (4-12)
[2018-04-01 05:55] LABS: Calcium 7.9 MG/DL (8.5-10.1); Osmolality,Calculated 268.5 MOS/KG (273-304); Potassium 3.5 MMOL/L (3.5-5.1)
[2018-04-01] MEDS: INSULIN NPH/REGULAR 70/30 100 UNIT/ML SUBCUT SCH ×2 (08:27→16:48)
[2018-04-01] MEDS: INSULIN REGULAR 100 UNIT/ML SUBCUT SCH ×4 (08:27→20:54)
[2018-04-01] MEDS: PROPRANOLOL 10 MG TABLET PO SCH ×3 (09:50→20:48)
[2018-04-01] MEDS: amLODIPine 10 MG TABLET PO SCH (09:50)
[2018-04-01] MEDS: MULTIVITAMIN (BEROCCA) TABLET PO SCH (09:50)
[2018-04-01] MEDS: ENOXAPARIN 30 MG/0.3 ML SYRINGE SUBCUT SCH (09:51)
[2018-04-01] MEDS: DOCUSATE SODIUM 100 MG CAPSULE PO SCH ×2 (09:51→20:48)
[2018-04-01] MEDS: THIAMINE 100 MG TABLET PO SCH (09:51)
[2018-04-01] MEDS: PANTOPRAZOLE 40 MG TABLET PO SCH (09:51)
[2018-04-01] MEDS: FOLIC ACID 1 MG TABLET PO SCH (09:51)
[2018-04-01] MEDS: SEVELAMER CARBONATE 800 MG TABLET PO SCH ×4 (09:51→18:21)
[2018-04-02 05:46] LABS: Calcium 8.2 MG/DL (8.5-10.1); Osmolality,Calculated 264.7 MOS/KG (273-304); Potassium 3.3 MMOL/L (3.5-5.1)
[2018-04-02] MEDS: INSULIN REGULAR 100 UNIT/ML SUBCUT SCH ×4 (08:14→20:37)
[2018-04-02] MEDS: INSULIN NPH/REGULAR 70/30 100 UNIT/ML SUBCUT SCH ×2 (08:14→16:19)
[2018-04-02] MEDS: FOLIC ACID 1 MG TABLET PO SCH (08:15)
[2018-04-02] MEDS: amLODIPine 10 MG TABLET PO SCH (08:15)
[2018-04-02] MEDS: PROPRANOLOL 10 MG TABLET PO SCH ×3 (08:15→20:37)
[2018-04-02] MEDS: MULTIVITAMIN (BEROCCA) TABLET PO SCH (08:15)
[2018-04-02] MEDS: ENOXAPARIN 30 MG/0.3 ML SYRINGE SUBCUT SCH (08:15)
[2018-04-02] MEDS: SEVELAMER CARBONATE 800 MG TABLET PO SCH ×3 (08:15→16:19)
[2018-04-02] MEDS: DOCUSATE SODIUM 100 MG CAPSULE PO SCH ×2 (08:15→20:37)
[2018-04-02] MEDS: THIAMINE 100 MG TABLET PO SCH (08:16)
[2018-04-02] MEDS: PANTOPRAZOLE 40 MG TABLET PO SCH (08:16)
[2018-04-03 06:05] LABS: Basophils # 0.1 10*3/uL (0.0-0.2); Basophils % 1.1 % (0.0-0.8); Eosinophils # 0.1 10*3/uL (0.0-0.87); Eosinophils % 1.6 % (0.00-10.9); Hematocrit 33.9 VOL% (42.0-52.0); Hemoglobin 11.8 GM/DL (14.0-18.0); Immature Granulocytes % 0.5 %; Immature Granulocytes Absolute 0.03 #; Lymphocytes % 16.5 % (21.2-54.2); Mean Corpuscular HGB Conc 34.8 GM/DL (32-36); Mean Corpuscular Hemoglobin 33 PG (27-34); Mean Corpuscular Volume 95.8 FL (87-102); Mean Platelet Volume 10.9 FL (9.6-12.0); Monocytes # 0.8 10*3/uL (0.11-0.8); Monocytes % 12.6 % (1.7-12.7); Neutrophils # 4.2 10*3/uL (1.4-7.4); Neutrophils % 67.7 % (38.7-73.9); Platelet Count 185 T/CUMM (130-400); Red Blood Count 3.54 MC/CUMM (3.8-5.5); Red Cell Distribution Width 15.4 % (9.3-17.3); White Blood Count 6.3 T/CUMM (4-12)
[2018-04-03 06:32] LABS: Calcium 8.3 MG/DL (8.5-10.1); Osmolality,Calculated 264.9 MOS/KG (273-304); Potassium 3.7 MMOL/L (3.5-5.1)
[2018-04-03] MEDS: PANTOPRAZOLE 40 MG TABLET PO SCH (09:49)
[2018-04-03] MEDS: THIAMINE 100 MG TABLET PO SCH (09:49)
[2018-04-03] MEDS: PROPRANOLOL 10 MG TABLET PO SCH ×3 (09:49→21:08)
[2018-04-03] MEDS: ENOXAPARIN 30 MG/0.3 ML SYRINGE SUBCUT SCH (09:49)
[2018-04-03] MEDS: amLODIPine 10 MG TABLET PO SCH (09:49)
[2018-04-03] MEDS: INSULIN NPH/REGULAR 70/30 100 UNIT/ML SUBCUT SCH ×2 (09:49→19:17)
[2018-04-03] MEDS: FOLIC ACID 1 MG TABLET PO SCH (09:49)
[2018-04-03] MEDS: DOCUSATE SODIUM 100 MG CAPSULE PO SCH ×2 (09:49→21:08)
[2018-04-03] MEDS: SEVELAMER CARBONATE 800 MG TABLET PO SCH ×3 (09:49→19:16)
[2018-04-03] MEDS: MULTIVITAMIN (BEROCCA) TABLET PO SCH (09:49)
[2018-04-03] MEDS: INSULIN REGULAR 100 UNIT/ML SUBCUT SCH ×4 (09:50→21:08)
[2018-04-03] MEDS ORDERED: VANCOMYCIN INJ 750 MG in SODIUM CHLORIDE 0.9% 250 ML IV PRN (15:51)
[2018-04-03] MEDS ORDERED: VANCOMYCIN INJ 1,500 MG in SODIUM CHLORIDE 0.9% 500 ML IV ONE (16:30)
[2018-04-03] MEDS ORDERED: LORazepam 2 MG/1 ML VIAL IV PRN (19:29)
[2018-04-03] MEDS: chlordiazePOXIDE 25 MG CAPSULE PO SCH (21:08)
[2018-04-04] MEDS ORDERED: ceFAZolin 1,000 MG in SYRINGE 1 EACH IV ONE ×2 (06:30→09:00)
[2018-04-04] MEDS: INSULIN REGULAR 100 UNIT/ML SUBCUT SCH ×4 (09:00→21:29)
[2018-04-04] MEDS: INSULIN NPH/REGULAR 70/30 100 UNIT/ML SUBCUT SCH ×2 (09:01→17:12)
[2018-04-04] MEDS: FOLIC ACID 1 MG TABLET PO SCH (09:01)
[2018-04-04] MEDS: SEVELAMER CARBONATE 800 MG TABLET PO SCH ×3 (09:01→18:08)
[2018-04-04] MEDS: DOCUSATE SODIUM 100 MG CAPSULE PO SCH ×2 (09:01→21:28)
[2018-04-04] MEDS: MULTIVITAMIN (BEROCCA) TABLET PO SCH (09:01)
[2018-04-04] MEDS: PROPRANOLOL 10 MG TABLET PO SCH ×3 (09:01→21:28)
[2018-04-04] MEDS: PANTOPRAZOLE 40 MG TABLET PO SCH (09:02)
[2018-04-04] MEDS: chlordiazePOXIDE 25 MG CAPSULE PO SCH ×4 (09:02→21:27)
[2018-04-04] MEDS: ENOXAPARIN 30 MG/0.3 ML SYRINGE SUBCUT SCH (09:02)
[2018-04-04] MEDS: amLODIPine 10 MG TABLET PO SCH (09:02)
[2018-04-04] MEDS: THIAMINE 100 MG TABLET PO SCH (09:02)
[2018-04-04] MEDS: ALBUTEROL/IPRATROPIUM 3 ML NEB RESP TX SCH ×3 (11:00→19:30)
[2018-04-04] MEDS ORDERED: LIDOCAINE 1% 20 ML VIAL ONE (11:38)
[2018-04-04] MEDS ORDERED: SODIUM CHLORIDE 0.9% 250 ML IV SCH (12:30)
[2018-04-04] MEDS ORDERED: PROPOFOL 200 MG/20 ML VIAL IV ONE (13:13)
[2018-04-04] MEDS ORDERED: SEVOFLURANE 1 UNIT/15 MINUTE INH ONE (13:14)
[2018-04-04] MEDS ORDERED: fentaNYL 100 MCG/2 ML VIAL ONE (13:15)
[2018-04-04] MEDS ORDERED: DEXAMETHASONE 10 MG/1 ML VIAL ONE (13:17)
[2018-04-04] MEDS ORDERED: KETOROLAC 30 MG/1 ML VIAL ONE (13:17)
[2018-04-04] MEDS ORDERED: ONDANSETRON 4 MG/2 ML VIAL ONE (13:17)
[2018-04-04] MEDS ORDERED: MIDAZOLAM 2 MG/2 ML VIAL ONE (13:17)
[2018-04-04] MEDS ORDERED: SODIUM CHLORIDE 0.9% 250 ML IV ONE (13:18)
[2018-04-04] MEDS ORDERED: PHENYLEPHRINE 1 MG/10 ML SYRINGE IV ONE (13:18)
[2018-04-04] MEDS ORDERED: VANCOMYCIN INJ 750 MG in SODIUM CHLORIDE 0.9% 250 ML IV ONE (16:00)
[2018-04-05] MEDS: ALBUTEROL/IPRATROPIUM 3 ML NEB RESP TX SCH ×7 (00:15→22:35)
[2018-04-05 04:53] LABS: Basophils % 0.2 % (0.0-0.8); Hemoglobin 11.4 GM/DL (14.0-18.0); Immature Granulocytes % 0.5 %; Immature Granulocytes Absolute 0.02 #; Lymphocytes # 0.4 10*3/uL (1.4-4.0); Lymphocytes % 8.9 % (21.2-54.2); Mean Corpuscular HGB Conc 34.5 GM/DL (32-36); Mean Corpuscular Hemoglobin 33 PG (27-34); Mean Corpuscular Volume 94.6 FL (87-102); Mean Platelet Volume 10.8 FL (9.6-12.0); Monocytes # 0.3 10*3/uL (0.11-0.8); Monocytes % 6.3 % (1.7-12.7); Neutrophils # 3.5 10*3/uL (1.4-7.4); Neutrophils % 84.1 % (38.7-73.9); Platelet Count 248 T/CUMM (130-400); Red Blood Count 3.49 MC/CUMM (3.8-5.5); Red Cell Distribution Width 15.4 % (9.3-17.3); White Blood Count 4.1 T/CUMM (4-12)
[2018-04-05 05:22] LABS: Calcium 8.1 MG/DL (8.5-10.1); Osmolality,Calculated 278.5 MOS/KG (273-304); Potassium 4.5 MMOL/L (3.5-5.1)
[2018-04-05] MEDS: ENOXAPARIN 30 MG/0.3 ML SYRINGE SUBCUT SCH (09:08)
[2018-04-05] MEDS: INSULIN NPH/REGULAR 70/30 100 UNIT/ML SUBCUT SCH ×2 (09:08→09:15)
[2018-04-05] MEDS: INSULIN REGULAR 100 UNIT/ML SUBCUT SCH ×4 (09:08→21:24)
[2018-04-05] MEDS: MULTIVITAMIN (BEROCCA) TABLET PO SCH (09:09)
[2018-04-05] MEDS: FOLIC ACID 1 MG TABLET PO SCH (09:10)
[2018-04-05] MEDS: THIAMINE 100 MG TABLET PO SCH (09:10)
[2018-04-05] MEDS: DOCUSATE SODIUM 100 MG CAPSULE PO SCH ×2 (09:10→21:24)
[2018-04-05] MEDS: PROPRANOLOL 10 MG TABLET PO SCH ×3 (09:10→21:23)
[2018-04-05] MEDS: SEVELAMER CARBONATE 800 MG TABLET PO SCH ×3 (09:10→16:34)
[2018-04-05] MEDS: chlordiazePOXIDE 25 MG CAPSULE PO SCH ×4 (09:10→21:23)
[2018-04-05] MEDS: amLODIPine 10 MG TABLET PO SCH (09:10)
[2018-04-05] MEDS: PANTOPRAZOLE 40 MG TABLET PO SCH (09:10)
[2018-04-05] MEDS ORDERED: INSULIN NPH/REGULAR 70/30 100 UNIT/ML SUBCUT SCH (15:56)
[2018-04-05] MEDS ORDERED: SKIN HEALING OINT (AQUAPHOR) 50 GM TUBE TOP PRN (17:08)
[2018-04-05] MEDS ORDERED: CHLORHEXIDINE 4% SOLN 118 ML BOTTLE TOP ONE (17:08)
[2018-04-06] MEDS: ALBUTEROL/IPRATROPIUM 3 ML NEB RESP TX SCH ×6 (02:38→22:46)
[2018-04-06 06:02] LABS: Basophils # 0.1 10*3/uL (0.0-0.2); Basophils % 0.8 % (0.0-0.8); Eosinophils # 0.1 10*3/uL (0.0-0.87); Eosinophils % 1.4 % (0.00-10.9); Hematocrit 32.1 VOL% (42.0-52.0); Immature Granulocytes % 0.5 %; Immature Granulocytes Absolute 0.03 #; Lymphocytes % 15.8 % (21.2-54.2); Mean Corpuscular HGB Conc 34.3 GM/DL (32-36); Mean Corpuscular Hemoglobin 33 PG (27-34); Mean Corpuscular Volume 96.4 FL (87-102); Mean Platelet Volume 10.4 FL (9.6-12.0); Monocytes # 1.1 10*3/uL (0.11-0.8); Monocytes % 17.2 % (1.7-12.7); Neutrophils # 4.2 10*3/uL (1.4-7.4); Neutrophils % 64.3 % (38.7-73.9); Platelet Count 281 T/CUMM (130-400); Red Blood Count 3.33 MC/CUMM (3.8-5.5); Red Cell Distribution Width 15.2 % (9.3-17.3); White Blood Count 6.6 T/CUMM (4-12)
[2018-04-06 06:25] LABS: Eosinophils 1 % (0-10); Hypochromasia 1+; Lymphocytes 15 % (20-55); Ovalocytes Slight; Platelet Estimate Adequate; Segmented Neutrophils 70 % (50-85); Total Cells Counted 100
[2018-04-06] MEDS: INSULIN REGULAR 100 UNIT/ML SUBCUT SCH (07:51)
[2018-04-06] MEDS ORDERED: INSULIN NPH/REGULAR 70/30 100 UNIT/ML SUBCUT SCH ×2 (08:00→17:00)
[2018-04-06] MEDS: ENOXAPARIN 30 MG/0.3 ML SYRINGE SUBCUT SCH (08:51)
[2018-04-06] MEDS: FOLIC ACID 1 MG TABLET PO SCH (08:52)
[2018-04-06] MEDS: THIAMINE 100 MG TABLET PO SCH (08:52)
[2018-04-06] MEDS: amLODIPine 10 MG TABLET PO SCH (08:52)
[2018-04-06] MEDS: SEVELAMER CARBONATE 800 MG TABLET PO SCH ×3 (08:52→17:04)
[2018-04-06] MEDS: chlordiazePOXIDE 25 MG CAPSULE PO SCH ×4 (08:52→21:16)
[2018-04-06] MEDS: PANTOPRAZOLE 40 MG TABLET PO SCH (08:52)
[2018-04-06] MEDS: DOCUSATE SODIUM 100 MG CAPSULE PO SCH ×2 (08:54→21:17)
[2018-04-06] MEDS: MULTIVITAMIN (BEROCCA) TABLET PO SCH (08:54)
[2018-04-06] MEDS: PROPRANOLOL 10 MG TABLET PO SCH ×3 (08:55→21:16)
[2018-04-06] MEDS: INSULIN NPH/REGULAR 70/30 100 UNIT/ML SUBCUT SCH (09:24)
[2018-04-06] MEDS: INSULIN LISPRO 100 UNIT/ML SUBCUT SCH ×3 (12:02→21:21)
[2018-04-06] MEDS ORDERED: VANCOMYCIN INJ 750 MG in SODIUM CHLORIDE 0.9% 250 ML IV ONE (18:00)
[2018-04-06] MEDS ORDERED: ceFAZolin 2,000 MG in PREMIX 1 EACH IV SCH ×2 (18:00→21:00)
[2018-04-07] MEDS: ALBUTEROL/IPRATROPIUM 3 ML NEB RESP TX SCH ×3 (02:25→10:30)
[2018-04-07] MEDS: INSULIN LISPRO 100 UNIT/ML SUBCUT SCH ×2 (07:33→12:25)
[2018-04-07] MEDS ORDERED: INSULIN NPH/REGULAR 70/30 100 UNIT/ML SUBCUT SCH (08:00)
[2018-04-07] MEDS: ENOXAPARIN 30 MG/0.3 ML SYRINGE SUBCUT SCH (09:27)
[2018-04-07] MEDS: PANTOPRAZOLE 40 MG TABLET PO SCH (09:28)
[2018-04-07] MEDS: amLODIPine 10 MG TABLET PO SCH (09:28)
[2018-04-07] MEDS: FOLIC ACID 1 MG TABLET PO SCH (09:28)
[2018-04-07] MEDS: SEVELAMER CARBONATE 800 MG TABLET PO SCH ×2 (09:28→12:25)
[2018-04-07] MEDS: PROPRANOLOL 10 MG TABLET PO SCH (09:28)
[2018-04-07] MEDS: MULTIVITAMIN (BEROCCA) TABLET PO SCH (09:28)
[2018-04-07] MEDS: chlordiazePOXIDE 25 MG CAPSULE PO SCH (09:28)
[2018-04-07] MEDS: THIAMINE 100 MG TABLET PO SCH (09:28)
[2018-04-07] MEDS: DOCUSATE SODIUM 100 MG CAPSULE PO SCH (09:28)
[2018-04-07 14:12] VITALS: BP 135/83
[2018-04-07] MEDS ORDERED: chlordiazePOXIDE 25 MG CAPSULE PO SCH (15:00)
[2018-04-07] MEDS ORDERED: ceFAZolin 1,000 MG in SYRINGE 1 EACH IV SCH (21:00)
== END 2018-04-07 14:59 | DRG 981 ==
LOC: EDBD → EDUNIT# → N.EDINP 19:04 → N.ED 19:04 → N.2E 23:33 → SUATTDRO 04-01 17:32
PROVIDERS: ADMIT Internal Medicine; ATTEND Internal Medicine